=== PATIENT | male | born 1995 | race Caucasian/White ===

== ENCOUNTER 2022-05-20 16:52 | Emergency (ER) | payer BC ==
[~2022-05-20] VITALS: Ht 177.8 cm; Wt 145.1 kg
[~2022-05-20 16:52] MED LIST: CATAPRES0.2 M1 PO; LISINOPRIL10 M1 PO; METFORMIN500 MG PO; ZOCOR20 MG PO
[2022-05-20 17:38] LABS: BASO # 0.1 10*3/uL (0.0-0.1); BASO % 1.4 % (0.0-1.0); EOS # 0.2 10*3/uL (0.0-0.4); EOS % 2.6 % (1.0-4.0); HEMATOCRIT 46.4 % (42.0-52.0); LYMPH # 2.8 10*3/uL (1.3-4.4); LYMPH % 38.2 % (27.0-41.0); MEAN CELL VOLUME 90.6 fl (80.0-94.0); MEAN CORPUSCULAR HGB 30.7 pg (27.0-31.0); MEAN CORPUSCULAR HGB CONC 33.8 g/dl (33.0-37.0); MEAN PLATELET VOLUME 10.4 fl (9.6-12.3); MONO # 0.7 10*3/uL (0.1-1.0); MONO % 9.7 % (3.0-9.0); NEUT # 3.4 10*3/uL (2.3-7.9); NEUT % 47.7 % (47.0-73.0); PLATELET COUNT AUTOMATED 276 10*3/uL (130-400); RED BLOOD COUNT 5.12 10*6/uL (4.50-5.90); RED CELL DISTRI WIDTH 12.6 % (0-14.5); WHITE BLOOD COUNT 7.2 10*3/uL (4.8-10.8)
[2022-05-20 17:52] LABS: ALKALINE PHOSPHATASE 81 U/L (45-117); BUN 12 mg/dl (7-24); CHLORIDE 113 mmol/L (98-107); CREATININE 0.95 mg/dL (0.70-1.30); SGOT/AST 39 IU/L (3-35); SGPT/ALT 91 U/L (12-78); SODIUM 142 mmol/L (136-145); TOTAL PROTEIN 7.9 gm/dL (6.4-8.2)
[2022-05-20 18:01] LABS: ACT PARTIAL THROMBO TIME 29.1 SECONDS (20.0-32.1); INTERNATIONAL NORM RATIO 0.9 (2.0-3.5)
[2022-05-20] MEDS ORDERED: MECLIZINE HCL25 M2 PO (21:16)
== END 2022-05-20 21:26 | disposition home or self-care (01) ==
LOC: ED 16:52
PROVIDERS: Emergency Medicine
DX: R42 Dizziness and giddiness (principal); E86.0 Dehydration; Z79.899 Other long term (current) drug therapy

== ENCOUNTER → 2022-07-25 | Outpatient (CLI) | payer BC ==
[~2022-07-25] MED LIST changes: +MECLIZINE HCL25 M2 PO
== END | disposition home or self-care (01) ==
LOC: MRI 07-23 13:00
PROVIDERS: ATTEND Specialist
DX: H74.8X2 Other specified disorders of left middle ear and mastoid (principal)

== ENCOUNTER 2023-11-30 12:15 | Emergency (ER) | payer BC ==
[~2023-11-30] VITALS: Ht 177.8 cm; Wt 111.1 kg
[2023-11-30] MEDS ORDERED: ATORVASTATIN CA40 M1 PO (13:22)
[2023-11-30] MEDS ORDERED: LISINOPRIL20 MG PO (13:22)
[2023-11-30] MEDS ORDERED: CIPROFLOXACIN H10 ML OPH (13:27)
== END 2023-11-30 13:42 | disposition home or self-care (01) ==
LOC: ED 12:15
DX: H10.9 Unspecified conjunctivitis (principal); Z79.899 Other long term (current) drug therapy